=== PATIENT | female | born 1960 | race Caucasian/White ===

== ENCOUNTER 2017-11-09 10:19 | Day surgery (SDC) | payer OTHER ==
[2017-11-09] MEDS ORDERED: LIDOCAINE 2% INJ 100 MG/5 ML SDV (FOR ANES.) As Ordered (13:14)
[2017-11-09] MEDS ORDERED: PROPOFOL 200 MG/20 ML VIAL As Ordered ×2 (13:14→14:08)
[2017-11-09] MEDS: NS 1,000 ML IV (13:45)
== END 2017-11-09 14:29 | disposition home or self-care (01) ==
LOC: M OPP 10:19
DX: Z12.11 Encounter for screening for malignant neoplasm of colon (principal); K64.0 First degree hemorrhoids; K57.30 Diverticulosis of large intestine without perforation or abscess without bleeding; R12 Heartburn; K44.9 Diaphragmatic hernia without obstruction or gangrene; D18.1 Lymphangioma, any site; I10 Essential (primary) hypertension; E78.5 Hyperlipidemia, unspecified; K21.9 Gastro-esophageal reflux disease without esophagitis; G43.909 Migraine, unspecified, not intractable, without status migrainosus; F41.9 Anxiety disorder, unspecified; F32.9 Major depressive disorder, single episode, unspecified; Z78.0 Asymptomatic menopausal state; G47.30 Sleep apnea, unspecified; Z85.3 Personal history of malignant neoplasm of breast; Z90.10 Acquired absence of unspecified breast and nipple; Z87.891 Personal history of nicotine dependence; Z79.899 Other long term (current) drug therapy
CPT/HCPCS: G0121

== ENCOUNTER → 2021-08-31 | Outpatient (CLI) | payer OTHER ==
[~2021-08-31] MED LIST: OMEP1CAP73 PO; TURMPOW PO
--- NOTE | 2021-08-31 11:15 | REP ---
INDICATION: GENERALIZED ABD PAIN COMPARISON: None TECHNIQUE: Axial noncontrast images from the lung bases to the pubic symphysis with coronal and sagittal reformations. This CT examination was performed using the following dose reduction techniques: Automated exposure control, adjustment of mA and/or kv according to the patient's size, and use of iterative reconstruction technique. FINDINGS: Lung bases are clear. Visualized heart and pericardium normal. Large hiatal hernia identified at the gastroesophageal junction. Liver, spleen, pancreas, gallbladder, bilateral adrenal glands and right kidney are normal. Left kidney includes 13.5 cm exophytic upper pole cyst. The enteric system is unremarkable and without obstruction or acute inflammatory process. Normal terminal ileum and appendix identified in the right lower quadrant. Colonic and predominately sigmoid diverticulosis noted without acute diverticulitis. Small 2.5 cm fat containing periumbilical hernia. Pelvis demonstrates normal bladder and age-appropriate uterus/adnexa. No ascites. No free air. No adenopathy. No focal inflammatory stranding. Abdominal aorta without aneurysm. Musculoskeletal structures are intact and without acute osseous abnormality. IMPRESSION: 1. 13.5 cm left upper pole renal cyst. 2. Colonic/sigmoid diverticulosis. 3. Large gastric hiatal hernia. <Electronically signed by Paco Lindsey > 08/31/21 1111
== END ==
LOC: M PLAIMG 10:04
PROVIDERS: ATTEND Family Medicine
DX: N28.1 Cyst of kidney, acquired (principal); K44.9 Diaphragmatic hernia without obstruction or gangrene; K57.30 Diverticulosis of large intestine without perforation or abscess without bleeding

== ENCOUNTER → 2021-10-19 | Outpatient (CLI) | payer OTHER ==
[~2021-10-19] MED LIST changes: +ISOVUE-370 76% 100ML VIAL ONE
--- NOTE | 2021-10-19 09:44 | REP ---
INDICATION: RENAL CYST OF LT COMPARISON: 08/31/2021 TECHNIQUE: Axial contrast-enhanced images of the abdomen with coronal and sagittal reformations. This CT examination was performed using the following dose reduction techniques: Automated exposure control, adjustment of mA and/or kv according to the patient's size, and use of iterative reconstruction technique. FINDINGS: Lung bases are clear. Visualized heart and pericardium normal. Liver, spleen, pancreas, gallbladder, bilateral adrenal glands and right kidney are normal. 13 cm simple appearing left renal cyst extends cranially from the interpolar region. Moderate hiatal hernia again noted. Visualized small and large bowel without obstruction or acute inflammatory process. No ascites. No free air. No adenopathy. Abdominal aorta without aneurysm or dissection. Small stable fat containing periumbilical hernia again noted. Musculoskeletal structures demonstrate age-related changes. IMPRESSION: 13 cm simple left renal cyst. <Electronically signed by Paco Lindsey > 10/19/21 [id number]
== END ==
LOC: M PLAIMG 08:52
PROVIDERS: ATTEND Physician Assistant
DX: N28.1 Cyst of kidney, acquired (principal)
CPT/HCPCS: 74160; Q9967

== ENCOUNTER → 2022-03-13 | Outpatient (CLI) | payer OTHER ==
[~2022-03-13] MED LIST changes: -ISOVUE-370 76% 100ML VIAL ONE
== END ==
LOC: M SLEEP 20:00
PROVIDERS: ATTEND Nurse Practitioner Family
DX: G47.33 Obstructive sleep apnea (adult) (pediatric) (principal)

== ENCOUNTER → 2023-10-21 | Outpatient (CLI) | payer MEDICARE, OTHER | LOC: M WHC 07:52 | PROVIDERS: ATTEND Nurse Practitioner Family | DX: Z12.31 Encounter for screening mammogram for malignant neoplasm of breast (principal) ==

== ENCOUNTER → 2024-10-22 | Outpatient (CLI) | payer OTHER, MEDICARE | LOC: M WHC 09:24 | PROVIDERS: ATTEND Nurse Practitioner Family | DX: Z12.31 Encounter for screening mammogram for malignant neoplasm of breast (principal) ==

== ENCOUNTER → 2025-02-22 | Outpatient (CLI) | payer MEDICARE, OTHER | LOC: M RAD 14:38 | PROVIDERS: ATTEND Family Medicine | DX: R10.30 Lower abdominal pain, unspecified (principal); K42.9 Umbilical hernia without obstruction or gangrene; K57.30 Diverticulosis of large intestine without perforation or abscess without bleeding; K44.9 Diaphragmatic hernia without obstruction or gangrene; N28.1 Cyst of kidney, acquired ==

== ENCOUNTER → 2025-05-20 | Outpatient (CLI) | payer OTHER, MEDICARE ==
[2025-05-20 09:30] LABS: CALCIUM LEVEL 9.3 MG/DL (8.3-10.6); CARBON DIOXIDE LEVEL 28.0 MMOL/L (20-31); CHLORIDE LEVEL 104.0 MMOL/L (98-107); CREATININE FOR GFR 0.75 MG/DL (0.55-1.30); GLOMERULAR FILTRATION RATE 87.2 (>45); POTASSIUM SERUM 3.9 MMOL/L (3.5-5.1); SODIUM LEVEL 140.0 MMOL/L (136-145)
== END ==
LOC: M LAB 08:01
PROVIDERS: ATTEND Radiology Diagnostic Radiology
DX: N28.1 Cyst of kidney, acquired (principal)

== ENCOUNTER → 2025-05-22 | Outpatient (CLI) | payer MEDICARE, OTHER ==
[~2025-05-22] MED LIST changes: +ISOVUE-370 76% 100 ML VIAL ONE
== END ==
LOC: M PLAIMG 08:27
PROVIDERS: ATTEND Nurse Practitioner Family
DX: N28.1 Cyst of kidney, acquired (principal); K76.0 Fatty (change of) liver, not elsewhere classified; K76.89 Other specified diseases of liver; K57.30 Diverticulosis of large intestine without perforation or abscess without bleeding; R59.0 Localized enlarged lymph nodes; K42.9 Umbilical hernia without obstruction or gangrene; K44.9 Diaphragmatic hernia without obstruction or gangrene; R93.2 Abnormal findings on diagnostic imaging of liver and biliary tract
CPT/HCPCS: 74177; Q9967

== ENCOUNTER → 2025-07-09 | Outpatient (CLI) | payer OTHER, MEDICARE ==
[~2025-07-09] VITALS: Ht 170.2 cm; Wt 79.5 kg
[~2025-07-09] MED LIST changes: +CHOL125C6 PO; -ISOVUE-370 76% 100 ML VIAL ONE; +MIDAZOLAM INJ 2 MG/2 ML VIAL IV PRN; +ONDANSETRON 4MG 2ML VIAL IV PRN
[2025-07-09] MEDS: ceFAZolin SODIUM 2 GM in DEXTROSE 5% (D5W) ADV/MINI-BAG 50 ML IV ONE (13:08)
[2025-07-09 13:16] LABS: PLATELET COUNT, AUTOMATED 276 10^3/uL (150-450)
[2025-07-09 13:20] LABS: INR 0.9
[2025-07-09] MEDS: LIDOCAINE 1% MDV 20 ML VIAL SC SCH (14:45)
[2025-07-09] MEDS: NS (Normal Saline) 0.9% 1,000 ML IV SCH (14:47)
[2025-07-09] MEDS: ISOVUE-300 61% 100 ML VIAL IV SCH (14:47)
[2025-07-09] MEDS: SODIUM CHLORIDE 0.9% 1000 ML XX SCH (14:47)
[2025-07-09] MEDS: SODIUM TETRADECYL SULFATE (1%) 20MG/2ML VIAL (SOTRADECOL) IV SCH (14:47)
== END ==
LOC: M IRPRO 12:06
PROVIDERS: ATTEND Nurse Practitioner Family
DX: N28.1 Cyst of kidney, acquired (principal)
CPT/HCPCS: 49185; 75989; 85027; 85610; 87070; 87075; 87205; J0688

== ENCOUNTER → 2025-07-09 | Outpatient (CLI) | payer OTHER, MEDICARE ==
[~2025-07-09] MED LIST changes: -MIDAZOLAM INJ 2 MG/2 ML VIAL IV PRN; -ONDANSETRON 4MG 2ML VIAL IV PRN
[2025-07-09 15:25] VITALS: BP 180/105; O2SAT 97
== END ==
LOC: M IRPRO 12:08
PROVIDERS: ATTEND Registered Nurse School
DX: R19.04 Left lower quadrant abdominal swelling, mass and lump (principal)

== ENCOUNTER → 2025-07-15 | Outpatient (CLI) | payer MEDICARE, OTHER ==
[~2025-07-15] MED LIST changes: +SODIUM CHLORIDE 0.9% 1000 ML XX SCH
[2025-07-15 14:10] VITALS: TEMP 98.7
[2025-07-15] MEDS: LIDOCAINE 1% MDV 20 ML VIAL SC SCH (15:23)
[2025-07-15] MEDS: ISOVUE-300 61% 100 ML VIAL IV SCH (15:23)
[2025-07-15] MEDS: SODIUM TETRADECYL SULFATE (1%) 20MG/2ML VIAL (SOTRADECOL) IV SCH (15:24)
[2025-07-15 16:20] VITALS: O2SAT 95
[2025-07-15 16:24] VITALS: BP 180/110
== END ==
LOC: M IRPRO 14:01
PROVIDERS: ATTEND Radiology Diagnostic Radiology
DX: N28.1 Cyst of kidney, acquired (principal)
CPT/HCPCS: 49185; Q9967

== ENCOUNTER → 2025-07-30 | Outpatient (CLI) | payer OTHER, MEDICARE ==
[~2025-07-30] MED LIST changes: -SODIUM CHLORIDE 0.9% 1000 ML XX SCH
== END ==
LOC: M RAD 09:38
PROVIDERS: ATTEND Nurse Practitioner Family
DX: N28.1 Cyst of kidney, acquired (principal)

== ENCOUNTER 2025-10-14 05:12 | Emergency (ER) | payer MEDICARE, OTHER ==
[~2025-10-14] VITALS: Ht 170.2 cm; Wt 77.5 kg
[2025-10-14 06:02] LABS: BASO # 0.1 10^3/uL (0.0-0.2); BASO % 0.6 % (0.0-1.0); EOS # 0.1 10^3/uL (0.0-0.5); EOS % 1.0 % (0.0-3.0); LYMPH # 1.8 10^3/uL (1.5-5.0); LYMPH % 14.6 % (24.0-44.0); MONO # 1.1 10^3/uL (0.0-0.8); MONO % 9.1 % (2.0-8.0); NEUTROPHILS # 9.3 10^3/uL (1.5-8.5); NEUTROPHILS % 74.2 % (36.0-66.0); PLATELET COUNT, AUTOMATED 262 10^3/uL (150-450)
[2025-10-14 06:34] LABS: ALT/SGPT 10 U/L (7.0-40); AST/SGOT 13 U/L (<34); CALCIUM LEVEL 9.2 MG/DL (8.3-10.6); CARBON DIOXIDE LEVEL 23 MMOL/L (20-31); CHLORIDE LEVEL 106 MMOL/L (98-107); CREATININE FOR GFR 0.91 MG/DL (0.55-1.30); GLOMERULAR FILTRATION RATE 69.2 (>45); POTASSIUM SERUM 3.9 MMOL/L (3.5-5.1); SODIUM LEVEL 138 MMOL/L (136-145)
[2025-10-14] MEDS ORDERED: ISOVUE-370 76% 100 ML VIAL As Ordered ONE (07:40)
[2025-10-14 07:42] LABS: CK-MB VALUE MASS < 1.0 NG/ML (<3.6)
[2025-10-14] MEDS: ONDANSETRON 4MG/2ML VIAL IV ONE (07:43)
[2025-10-14 07:44] LABS: CPK CREATINE PHOSPHOKINASE 49 U/L (34-145)
[2025-10-14] MEDS: NS (Normal Saline) 0.9% 1,000 ML IV ONE (07:46)
[2025-10-14] MEDS: ACETAMINOPHEN *IV* 1,000 MG in IV 1 EA IV ONE (07:47)
[2025-10-14] MEDS: MORPHINE 4 MG/ML 1 ML VIAL IV PRN (08:39)
[2025-10-14] MEDS ORDERED: OXYC-1 PO ×2 (09:20→09:22)
[2025-10-14] MEDS: ACETAMINOPHEN 500 MG TAB PO ONE (12:18)
[2025-10-14 12:42] VITALS: BP 160/90; TEMP 99.1; O2SAT 98
== END 2025-10-14 12:53 | disposition home or self-care (01) ==
LOC: M ED 05:12
DX: C56.2 Malignant neoplasm of left ovary (principal); N28.1 Cyst of kidney, acquired; K44.9 Diaphragmatic hernia without obstruction or gangrene; Z85.3 Personal history of malignant neoplasm of breast; Z90.12 Acquired absence of left breast and nipple; G47.30 Sleep apnea, unspecified; E78.5 Hyperlipidemia, unspecified; I10 Essential (primary) hypertension; K21.9 Gastro-esophageal reflux disease without esophagitis; Z79.899 Other long term (current) drug therapy
CPT/HCPCS: 71046; 74177; 80048; 80076; 82550; 82553; 83690; 84484; 85025; 93005; 96365; 96375; 99284; J0134; J2405; Q9967